=== PATIENT | female | born 1975 | race Caucasian/White ===

== ENCOUNTER 2023-10-18 16:50 | Emergency (ER) | payer OTHER ==
[~2023-10-18] VITALS: Ht 165.1 cm; Wt 110.0 kg
[2023-10-18 18:27] LABS: BILIRUBIN,URINE NEGATIVE (Neg); CLARITY,URINE SLIGHTLY CLOUDY (Clear); COLOR,URINE YELLOW (Yellow); GLUCOSE, URINE NEGATIVE (Neg); KETONES,URINE TRACE mg/dl (Neg); LEUKOCYTE ESTERASE ,URINE NEGATIVE (Neg); NITRITES, URINE NEGATIVE (Neg); OCCULT BLOOD,URINE NEGATIVE (Neg); PROTEIN,URINE NEGATIVE (Neg); UROBILINOGEN,URINE 0.2 E.U/dL (0.2-1.0)
[2023-10-18 18:30] LABS: UA COLLECTION TYPE NON-SPECIFIED
[2023-10-18 18:37] LABS: BACTERIA,URINE 2+ /HPF (Neg); RBC,URINE 0-2 /HPF (0-2); SQUAMOUS EPITHELIAL CELL,UR MANY /LPF (FEW); WBC,URINE 0-4 /HPF (0-4)
[2023-10-18] MEDS ORDERED: iohexol 300mg/ml 100ml inj. ONE (18:37)
[2023-10-18 18:58] LABS: BASOPHILS # (AUTO) 0.1 X10'3 (0-0.2); BASOPHILS % (AUTO) 0.8 % (0-1); EOSINOPHILS # (AUTO) 0.2 X10'3 (0-0.9); EOSINOPHILS % (AUTO) 1.8 % (0-6); HEMATOCRIT 40.8 % (35.0-45.0); HEMOGLOBIN 13.6 g/dl (12.0-16.0); LYMPHOCYTES # (AUTO) 2.3 X10'3 (1.1-4.8); LYMPHOCYTES % (AUTO) 17.2 % (21-51); MEAN CORPUSCULAR HEMOGLOBIN 27.8 PG (27.0-31.0); MEAN CORPUSCULAR HGB CONC 33.3 g/dL (33.0-36.5); MEAN CORPUSCULAR VOLUME 83.5 FL (78-98); MEAN PLATELET VOLUME 8.9 FL (7.4-10.4); MONOCYTES # (AUTO) 0.8 X10'3 (0-0.9); MONOCYTES % (AUTO) 6.1 % (2-12); NEUTROPHILS # (AUTO) 9.8 X10'3 (1.8-7.7); NEUTROPHILS % (AUTO) 74.1 % (42-75); PLATELET COUNT 268 X10'3 (140-440); RED BLOOD COUNT 4.88 X10'6 (4.20-5.60); RED CELL DISTRIBUTION WIDTH 13.3 % (11.5-14.5); WHITE BLOOD COUNT 13.3 X10'3 (4.5-11.0)
[2023-10-18 19:07] LABS: ALBUMIN 3.8 G/DL (3.4-5.0); ANION GAP 14 (8-16); BLOOD UREA NITROGEN 17 MG/DL (7-18); BUN/CREATININE RATIO 19.5 (10.0-20.0); CALCIUM 8.9 MG/DL (8.5-10.1); CHLORIDE 104 MMOL/L (99-107); CREATININE 0.87 MG/DL (0.40-0.90); GLUCOSE 109 MG/DL (70-104); LIPASE 23 U/L (16-77); POTASSIUM 3.9 MMOL/L (3.5-5.1); SODIUM 144 MMOL/L (135-145); TOTAL CARBON DIOXIDE 26.3 MMOL/L (24-32); eGFR 70 ML/MIN
[2023-10-18 19:08] LABS: HCG SERUM QL NEGATIVE
[2023-10-18] MEDS ORDERED: ketorolac trometh. 30mg/ml inj. IV ONE (20:40)
[2023-10-18] MEDS ORDERED: NAPR-56 PO (20:44)
[2023-10-18] MEDS ORDERED: CYCL-1 PO (20:45)
[2023-10-18 21:00] VITALS: BP 155/90; PULSE 96; TEMP 98.6; O2SAT 99
[2023-10-18 21:06] VITALS: RESP 17
[2023-10-18] MEDS: ketorolac tromethamine 15mg/ml inj. IV ONE (21:06)
== END 2023-10-18 22:10 | disposition home or self-care (01) ==
LOC: ER 16:51
DX: S16.1XXA Strain of muscle, fascia and tendon at neck level, initial encounter (principal); S30.811A Abrasion of abdominal wall, initial encounter; X58.XXXA Exposure to other specified factors, initial encounter; Y93.89 Activity, other specified; Y92.89 Other specified places as the place of occurrence of the external cause; Y99.8 Other external cause status; N63.0 Unspecified lump in unspecified breast
CPT/HCPCS: 36415; 70450; 71260; 72125; 74177; 80048; 81001; 83690; 84703; 85025; 96374; 99285; J1885; J3490; Q9967

== ENCOUNTER 2024-02-14 16:14 | Emergency (ER) | payer OTHER, BC ==
[~2024-02-14] VITALS: Ht 165.1 cm; Wt 110.9 kg
[~2024-02-14 16:14] MED LIST: CYCL-1 PO
[2024-02-14 16:37] VITALS: BP 167/100; PULSE 102; RESP 18; TEMP 97.8; O2SAT 98
[2024-02-14] MEDS: dexamethasone sod phosphate 10mg/ml inj IM STA (17:19)
[2024-02-14] MEDS: ketorolac trometh. 30mg/ml inj. IM ONE (17:19)
[2024-02-14] MEDS ORDERED: PRED20TA PO (18:28)
== END 2024-02-14 19:03 | disposition home or self-care (01) ==
LOC: ER 16:15
DX: M25.512 Pain in left shoulder (principal); M75.02 Adhesive capsulitis of left shoulder; M75.102 Unspecified rotator cuff tear or rupture of left shoulder, not specified as traumatic; Z79.899 Other long term (current) drug therapy; Z90.710 Acquired absence of both cervix and uterus
CPT/HCPCS: 73000; 73030; 96372; 99284; J1100; J1885